=== PATIENT | male | born 1990 ===

== ENCOUNTER 2017-03-24 18:13 | Emergency (ER) | payer OTHER ==
[2017-03-24 18:13] VITALS: BMI 26.6
[2017-03-24 18:48] VITALS: BP 117/80; PULSE 61; RESP 18; TEMP 98.8; O2SAT 100
--- NOTE | 2017-03-24 19:52 | C.PDOC ---
History Of Present Illness 26 year old patient presents to the ED complaining of a sore throat and left ear pain for the last 2-3 days. Patient states he has an itchy sensation in his throat. Patient also complains of a cough. He took one pill of Amoxicillin yesterday. Patient denies fever, shortness of breath, nausea, or vomiting. Time Seen by Provider: 03/24/17 19:17 Chief Complaint (Nursing): ENT Problem History Per: Patient History/Exam Limitations: no limitations Onset/Duration Of Symptoms: Days (2-3) Current Symptoms Are (Timing): Still Present Location Of Pain: Ear(s), Throat Sick Contacts (Context): None Associated Symptoms: Sore Throat, Cough, Nasal Congestion Ear Symptoms: Left: Ear Pain, Right: None Severity: Mild Pain Scale Rating Of: 3 Recent travel outside of the [place]: No Past Medical History Reviewed: Historical Data, Nursing Documentation, Vital Signs Vital Signs: Last Vital Signs Temp 98.8 F 03/24/17 18:46 Pulse 61 03/24/17 18:46 Resp 18 03/24/17 18:46 BP 117/80 03/24/17 18:46 Pulse Ox 100 03/24/17 20:03 Family History: States: Unknown Family Hx - Social History Hx Alcohol Use: Yes Hx Substance Use: No - Immunization History Hx Tetanus Toxoid Vaccination: No Hx Influenza Vaccination: No Hx Pneumococcal Vaccination: No Review Of Systems Except As Marked, All Systems Reviewed And Found Negative. Constitutional: Negative for: Fever ENT: Positive for: Ear Pain (left), Nose Congestion, Throat Pain Respiratory: Positive for: Cough. Negative for: Shortness of Breath Gastrointestinal: Negative for: Nausea, Vomiting Physical Exam - Physical Exam Appears: Well, Non-toxic, No Acute Distress Skin: Warm, Dry Eye(s): bilateral: Normal Inspection, EOMI Ear(s): Bilateral: Normal Nose: Other (nasal congestion) Oral Mucosa: Moist Throat: Normal, No Erythema, No Exudate Neck: Normal ROM, Supple Chest: Symmetrical Cardiovascular: Rhythm Regular Respiratory: Normal Breath Sounds, No Rales, No Rhonchi, No Wheezing Neurological/Psych: Oriented x3, Normal Speech, Normal Cognition Gait: Steady ED Course And Treatment O2 Sat by Pulse Oximetry: 100 (RA) Pulse Ox Interpretation: Normal Progress Note: Patient is resting comfortably in the ED. Patient's lungs are CTA , oxygen saturation is 100%. Patient is stable for discharge and instructed to follow up with his PMD. Return if symptoms worsen. Disposition Counseled Patient/Family Regarding: Diagnosis, Need For Followup, Rx Given - Disposition Referrals: 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 - Scribe Statement The provider has reviewed the documentation as recorded by the Scribe Eladia Blanco All medical record entries made by the Scribe were at my direction and personally dictated by me. I have reviewed the chart and agree that the record accurately reflects my personal performance of the history, physical exam, medical decision making, and the department course for this patient. I have also personally directed, reviewed, and agree with the discharge instructions and disposition.
== END 2017-03-24 20:11 | disposition home or self-care (01) ==
LOC: C.ER 18:13
DX: J30.9 Allergic rhinitis, unspecified (principal); H92.02 Otalgia, left ear

== ENCOUNTER 2017-03-31 13:38 | Emergency (ER) | payer OTHER ==
[2017-03-31 13:38] VITALS: BMI 26.6
[2017-03-31 13:52] VITALS: O2SAT 98
--- NOTE | 2017-03-31 15:40 | C.PDOC ---
History Of Present Illness A 26 year old male presents to the emergency room with complaints of a persistent productive cough for 5 days. Patient notes a runny nose and sneezing. Patient takes allergy medications, Amoxicillin, and Vitamin C. Patient also reports occasional shortness of breath. Patient denies fever, chills, chest pain, headaches, dizziness, nausea, vomiting, diarrhea, or any other complaints. Time Seen by Provider: 03/31/17 14:01 Chief Complaint (Nursing): Flu-like Symptoms History Per: Patient History/Exam Limitations: no limitations Onset/Duration Of Symptoms: Days (5) Current Symptoms Are (Timing): Still Present Associated Symptoms: Cough, Sputum, Other (Runny nose. Sneezing.). denies: Fever Ear Symptoms: Bilateral: None Severity: Mild Recent travel outside of the [place]: No Past Medical History Reviewed: Historical Data, Nursing Documentation, Vital Signs Vital Signs: Last Vital Signs Temp 98.2 F 03/31/17 15:48 Pulse 72 03/31/17 15:48 Resp 18 03/31/17 15:48 BP 124/72 03/31/17 15:48 Pulse Ox 98 03/31/17 17:33 Family History: States: Unknown Family Hx - Social History Hx Alcohol Use: Yes Hx Substance Use: No - Immunization History Hx Tetanus Toxoid Vaccination: No Hx Influenza Vaccination: No Hx Pneumococcal Vaccination: No Review Of Systems Except As Marked, All Systems Reviewed And Found Negative. Constitutional: Negative for: Fever, Chills ENT: Positive for: Other (Runny nose and sneezing ) Cardiovascular: Negative for: Chest Pain Respiratory: Positive for: Cough (Persistent productive cough), Shortness of Breath Gastrointestinal: Negative for: Nausea, Vomiting, Diarrhea Neurological: Negative for: Headache, Dizziness Physical Exam - Physical Exam Appears: Well, Non-toxic, No Acute Distress, Other (Patient was sleeping upon arrival.) Skin: Normal Color, Warm, Dry, Rash Head: Atraumatic, Normacephalic Eye(s): bilateral: Normal Inspection, PERRL, EOMI Ear(s): Bilateral: Normal Nose: Normal, No Discharge, No Tenderness Oral Mucosa: Moist Throat: Normal, No Erythema, No Exudate Neck: Normal ROM, No Midline Cervical Tenderness, No Paracervical Tenderness, Supple Lymphatic: Normal Exam Chest: Symmetrical Cardiovascular: Rhythm Regular Respiratory: Normal Breath Sounds, No Rales, No Rhonchi, No Wheezing, No Other ( No coughing throughout exam) Gastrointestinal/Abdominal: Soft, No Tenderness, No Guarding, No Rebound Back: No CVA Tenderness, No Vertebral Tenderness Extremity: Normal ROM, No Tenderness Neurological/Psych: Oriented x3, Normal Speech, Normal Cognition ED Course And Treatment O2 Sat by Pulse Oximetry: 98 - Radiology CXR: Interpreted by Me CXR Interpretation: Yes: No Acute Disease Progress Note: On reassessment, patient is resting comfortably with no wheezing , chest pain, or retractions. Oxygen saturation and breath sounds have improved. Patient is alert and oriented x 3. Patient was advised to follow up with physician/clinic in 1-2 days and return to ED if symptoms worsen or persist. Instructed to try new allergy mediation and use nebulizer if SOB or coughing attacks. Disposition - Disposition Disposition: HOME/ ROUTINE Disposition Time: 15:38 Condition: STABLE Additional Instructions: Follow up with primary medical doctor in 1-3 days without fail for further evaluation. Take medications as prescribed. Return to the emergency department at any time if symptoms persist or worsen. Prescriptions: Albuterol HFA [Ventolin HFA 90 mcg/actuation (8 g)] 2 puff IH [id number] #1 puff Loratadine/Pseudoephedrine [Claritin-D 24 Hour Tablet] 1 each PO DAILY #10 tab.er.24h Instructions: Acute Bronchitis (ED) - Clinical Impression Clinical Impression: Bronchitis - Scribe Statement The provider has reviewed the documentation as recorded by the Tiera David Provider Scribe Attestation: All medical record entries made by the Tiera were at my direction and personally dictated by me. I have reviewed the chart and agree that the record accurately reflects my personal performance of the history, physical exam, medical decision making, and the department course for this patient. I have also personally directed, reviewed, and agree with the discharge instructions and disposition.
--- NOTE | 2017-03-31 15:40 | RAD ---
HISTORY: uri sob COMPARISON: None available TECHNIQUE: Chest PA and lateral FINDINGS: LUNGS: No focal consolidation. Please note that chest x-ray has limited sensitivity for the detection of pulmonary masses. PLEURA: No significant pleural effusion identified. No definite pneumothorax . CARDIOVASCULAR: The cardiomediastinal silhouette appears within normal limits of size. OSSEOUS STRUCTURES: No acute osseous abnormality identified. VISUALIZED UPPER ABDOMEN: Unremarkable. OTHER FINDINGS: None. IMPRESSION: No focal consolidation, significant pleural effusion, or definite pneumothorax identified.
[2017-03-31 15:49] VITALS: BP 124/72; PULSE 72; RESP 18; TEMP 98.2
== END 2017-03-31 15:49 | disposition home or self-care (01) ==
LOC: C.ER 13:38
DX: J20.9 Acute bronchitis, unspecified (principal)

== ENCOUNTER 2018-01-13 09:49 | Emergency (ER) | payer OTHER ==
[2018-01-13 09:49] VITALS: BMI 26.6
[2018-01-13 10:04] VITALS: TEMP 98.6
--- NOTE | 2018-01-13 11:01 | C.PDOC ---
History Of Present Illness 27 y/o M c no PMHx p/w L arm pain x over 1 year. Patient states he has had pain in the L shoulder, elbow, and wrist for over 1 year, has seen a doctor for it before, never followed up, takes ibuprofen as needed and suspects pain is not improving due to physical nature of work. He denies fever, new injury, swelling. States when takes ibuprofen, sometimes he feels unwell. Time Seen by Provider: 01/13/18 10:18 Chief Complaint (Nursing): Upper Extremity Problem/Injury Past Medical History Vital Signs: Last Vital Signs Temp 98.6 F 01/13/18 09:59 Pulse 75 01/13/18 11:15 Resp 16 01/13/18 11:15 BP 132/88 01/13/18 11:15 Pulse Ox 98 01/13/18 11:15 Family History: States: Unknown Family Hx - Social History Hx Alcohol Use: Yes Hx Substance Use: No - Immunization History Hx Tetanus Toxoid Vaccination: No Hx Influenza Vaccination: No Hx Pneumococcal Vaccination: No Review Of Systems Except As Marked, All Systems Reviewed And Found Negative. Constitutional: Negative for: Fever Cardiovascular: Negative for: Chest Pain Physical Exam - Physical Exam Additional Physical Exam Comments: Gen: NAD Head: NC/AT Eyes: PERRL ENT: MMM Neck: Supple Chest: No tenderness CV: Regular rate Lungs: CTA b/l Abd: Soft, NT Skin: No rash Back: No CVA tenderness Extremities: FROM x 4. No swelling or deformity. No tenderness of extremities. Neuro: Alert, no focal deficit ED Course And Treatment O2 Sat by Pulse Oximetry: 100 Medical Decision Making Medical Decision Making: Advised f/u with Orthopedics for longstanding extremity pain. Toradol administered, advised Pepcid with NSAIDs. Disposition - Disposition Referrals: [facility] at [facility] [Outside] Disposition: HOME/ ROUTINE Disposition Time: 10:59 Condition: STABLE Additional Instructions: When you call the clinic to make an appointment, tell them you need to see an Orthopedist. Prescriptions: Famotidine [Pepcid] 1 tab PO BID #14 tab Instructions: Arm Pain (ED) Forms: [employer] (Malay), Work Excuse - Clinical Impression Clinical Impression: Arm pain
[2018-01-13 11:16] VITALS: BP 132/88; PULSE 75; RESP 16
[2018-01-13 12:55] VITALS: O2SAT 100
== END 2018-01-13 11:15 | disposition home or self-care (01) ==
LOC: C.ER 09:49
DX: M79.602 Pain in left arm (principal)
CPT/HCPCS: 96372; 99283; J1885

== ENCOUNTER 2018-01-14 12:44 | Emergency (ER) | payer OTHER ==
[2018-01-14 12:45] VITALS: BMI 26.6
[2018-01-14 12:53] VITALS: BP 134/88; PULSE 69; RESP 20; TEMP 98.7; O2SAT 99
[2018-01-14] MEDS ORDERED: Naproxen 550 mg Tab PO STA (13:53)
[2018-01-14] MEDS ORDERED: Naproxen 550 mg Tab PO ONE (14:00)
--- NOTE | 2018-01-14 14:56 | C.PDOC ---
History Of Present Illness Hardik Wilks is a 27 year old male, with a past medical history of injury to upper back and arm x1 year ago, who presents to the emergency department complaining of a worsening upper back pain that radiates down the left arm onset since today. Patient was seen yesterday in the ED for similar symptoms and was prescribed ibuprofen and pepcid. He has not taken any pain medication since last night. Patient reports pain is worst with movement. He denies any fever or numbness. No further medical complaints. PMD: None provided. Time Seen by Provider: 01/14/18 13:08 Chief Complaint (Nursing): Back Pain History Per: Patient History/Exam Limitations: no limitations Onset/Duration Of Symptoms: Days (x1) Current Symptoms Are (Timing): Still Present Quality Of Discomfort: "Pain" Previous Symptoms: Back Pain Associated Symptoms: None Exacerbating Factor(s): Movement Past Medical History Reviewed: Historical Data, Nursing Documentation, Vital Signs Vital Signs: Last Vital Signs Temp 98.7 F 01/14/18 12:51 Pulse 69 01/14/18 12:51 Resp 20 01/14/18 12:51 BP 134/88 01/14/18 12:51 Pulse Ox 99 01/16/18 17:24 - Medical History PMH: No Chronic Diseases Surgical History: No Surg Hx Family History: States: Unknown Family Hx - Social History Hx Tobacco Use: Yes (Current some days smoker) Hx Alcohol Use: Yes Hx Substance Use: No - Immunization History Hx Tetanus Toxoid Vaccination: No Hx Influenza Vaccination: No Hx Pneumococcal Vaccination: No Review Of Systems Constitutional: Negative for: Fever Musculoskeletal: Positive for: Arm Pain (left arm), Back Pain (upper back radiates down the left arm) Neurological: Negative for: Weakness, Numbness Physical Exam - Physical Exam Appears: Other (uncomfortable) Skin: Normal Color, Warm, Dry Head: Atraumatic, Normacephalic Eye(s): bilateral: Normal Inspection, PERRL, EOMI Neck: Normal ROM, No Midline Cervical Tenderness, Supple Respiratory: No Decreased Breath Sounds, No Wheezing Back: Other (left trapezius tenderness) Extremity: Normal ROM (full ROM on left upper extremities.), No Tenderness, No Deformity, No Swelling, Other (Subjective decreased sensation to finger tips in left hand. Motor strength intact) Pulses: Left Radial: Normal Neurological/Psych: Oriented x3, Normal Speech, Normal Cognition, Normal Motor, Normal Sensation Gait: Steady ED Course And Treatment O2 Sat by Pulse Oximetry: 99 (RA) Pulse Ox Interpretation: Normal Medical Decision Making Medical Decision Making: Initial Impression: Back pain Initial Plan: --Anaprox DS 550 mg PO --Valium 5mg PO --Reevaluation pt given naproxen and valium. feeling better. Advised to take Ibupforen around the clock (with h2 chidi) and muscle relaxant tid, or hs if woirking and to try to move clinic appt sooner. Disposition Counseled Patient/Family Regarding: Diagnosis, Need For Followup, Rx Given - Disposition Referrals: [facility] at [facility] [Outside] Disposition: HOME/ ROUTINE Disposition Time: 14:58 Condition: IMPROVED Additional Instructions: Please take ibuprofen 600 mg by mouth for pain. Take zantac daily. Also take muscle relaxant every 8 hours if at home or only at bedtime if going to work- makes you sleepy. Please try to make your clinic appointment sooner. Warm compresses to painful area on shoulder. Prescriptions: Cyclobenzaprine [Cyclobenzaprine HCl] 10 mg PO Q8 #9 tab Instructions: Muscle Spasm (ED) Forms: Gen Discharge Inst German, [employer] (German), Work Excuse Print Language: CROATIAN - Clinical Impression Clinical Impression: Trapezius muscle strain - Scribe Statement Salo Moralez All medical record entries made by the Scribe were at my direction and personally dictated by me. I have reviewed the chart and agree that the record accurately reflects my personal performance of the history, physical exam, medical decision making, and the department course for this patient. I have also personally directed, reviewed, and agree with the discharge instructions and disposition.
== END 2018-01-14 15:11 | disposition home or self-care (01) ==
LOC: C.ER 12:44
DX: S29.012A Strain of muscle and tendon of back wall of thorax, initial encounter (principal); X58.XXXA Exposure to other specified factors, initial encounter; Z87.891 Personal history of nicotine dependence